=== PATIENT | female | born 1980 | race Caucasian/White ===

== ENCOUNTER 2018-09-17 15:00 | Inpatient (IN) | payer OTHER ==
[~2018-09-17] VITALS: Ht 167.6 cm; Wt 160.7 kg
[2018-09-17] VITALS (7 sets, daily range): BP systolic 140–162; BP diastolic 81–116
[~2018-09-17 15:00] MED LIST: ALBUTEROL S2.5 MG/.5 IN; FLEXERIL PO; HEMOCYTE325 MG OR; HYDROCHLOROT12.5 M1 PO; JOLESSA PO; KLOR-CON 1010 ME1 PO; NAPROSYN500 MG PO; PROVENTIL HFA IN
[2018-09-17 16:43] LABS: HEMOGLOBIN 12.4 g/dl (12.0-16.0); IMMATURE GRANULOCYTES 0.4 % (0.0-5.0); MEAN CELL VOLUME 87.4 fL CALC (80.0-100.0); MEAN CORPUSCULAR HGB 26.6 pG CALC (26.0-32.0); MEAN CORPUSCULAR HGB CONC 30.4 g/L CALC (32.0-36.0); NEUT# 11.51 thou/uL (2.00-7.15); RED BLOOD COUNT 4.67 mill/uL (4.20-5.60); RED CELL DISTRI WIDTH 14.8 % (11.5-15.5)
[2018-09-17 16:58] LABS: ANION GAP 12 (6-22 (CALC)); BUN 16 mg/dL (7-17); BUN/CREATININE RATIO 17 (12-20 (CALC)); CARBON DIOXIDE 27 mmol/l (22-30); CHLORIDE 101 mmol/l (95-108); GFR > 60 ML/MIN (>=60 (CALC)); GFR FOR AFR.AMER. > 60 ML/MIN (>=60 (CALC)); POTASSIUM 4.3 mmol/l (3.5-5.1); SODIUM 136 mmol/l (137-146)
[2018-09-17 17:04] LABS: HEMATOCRIT 40.8 % (37.0-47.0)
[2018-09-17] MEDS ORDERED: LEVOTHYROXIN125 MCG PO (17:07)
[2018-09-17 19:50] LABS: TSH, 3RD GENERATION 18.8 uIU/mL (0.47 - 4.68)
[2018-09-18] VITALS (21 sets, daily range): BP systolic 113–173; BP diastolic 66–95
[2018-09-18 05:36] LABS: HEMATOCRIT 40.3 % (37.0-47.0); HEMOGLOBIN 12.2 g/dl (12.0-16.0); IMMATURE GRANULOCYTES 1.4 % (0.0-5.0); MEAN CELL VOLUME 87.2 fL CALC (80.0-100.0); MEAN CORPUSCULAR HGB 26.4 pG CALC (26.0-32.0); MEAN CORPUSCULAR HGB CONC 30.3 g/L CALC (32.0-36.0); NEUT# 9.33 thou/uL (2.00-7.15); RED BLOOD COUNT 4.62 mill/uL (4.20-5.60); RED CELL DISTRI WIDTH 14.8 % (11.5-15.5)
[2018-09-18 05:58] LABS: ANION GAP 14 (6-22 (CALC)); BUN 15 mg/dL (7-17); BUN/CREATININE RATIO 15 (12-20 (CALC)); CARBON DIOXIDE 26 mmol/l (22-30); CHLORIDE 100 mmol/l (95-108); GFR > 60 ML/MIN (>=60 (CALC)); GFR FOR AFR.AMER. > 60 ML/MIN (>=60 (CALC)); POTASSIUM 3.9 mmol/l (3.5-5.1); SODIUM 135 mmol/l (137-146)
[2018-09-18 11:16] LABS: URINE BILIRUBIN - DIPSTICK NEGATIVE (NEGATIVE); URINE BLOOD DIPSTICK NEGATIVE (NEGATIVE); URINE CLARITY CLEAR; URINE COLOR YELLOW; URINE GLUCOSE - DIPSTICK NEGATIVE (NEGATIVE); URINE KETONE NEGATIVE (NEGATIVE); URINE LEUK ESTERASE NEGATIVE (Negative); URINE NITRITE - DIPSTICK NEGATIVE (Negative); URINE PH 5.5 (4.5-8.0); URINE PROTEIN - DIPSTICK TRACE mg/dL (NEG-TRACE)
[2018-09-19] VITALS (16 sets, daily range): BP systolic 100–131; BP diastolic 53–79
[2018-09-19 05:06] LABS: HEMATOCRIT 41.2 % (37.0-47.0); HEMOGLOBIN 12.4 g/dl (12.0-16.0); IMMATURE GRANULOCYTES 0.5 % (0.0-5.0); MEAN CORPUSCULAR HGB 26.5 pG CALC (26.0-32.0); MEAN CORPUSCULAR HGB CONC 30.1 g/L CALC (32.0-36.0); NEUT# 10.06 thou/uL (2.00-7.15); RED BLOOD COUNT 4.68 mill/uL (4.20-5.60); RED CELL DISTRI WIDTH 14.8 % (11.5-15.5)
[2018-09-19 05:25] LABS: ALBUMIN 3.2 g/dL (3.2-5.0); ALKALINE PHOSPHATASE 82 u/l (38-126); BILIRUBIN, TOTAL 0.7 mg/dL (0.0-1.4); BUN 14 mg/dL (7-17); BUN/CREATININE RATIO 14 (12-20 (CALC)); CHLORIDE 94 mmol/l (95-108); GFR > 60 ML/MIN (>=60 (CALC)); GFR FOR AFR.AMER. > 60 ML/MIN (>=60 (CALC)); LIPASE 102 u/l (23-300); MAGNESIUM 1.7 mg/dL (1.6-2.3); POTASSIUM 3.6 mmol/l (3.5-5.1); SGOT/AST 25 u/l (14-36); SODIUM 139 mmol/l (137-146); TOTAL PROTEIN 6.4 g/dL (6.3-8.2)
[2018-09-19 05:32] LABS: AMYLASE < 30 u/l (30-110); ANION GAP 13 (6-22 (CALC)); CARBON DIOXIDE 36 mmol/l (22-30)
[2018-09-20] VITALS (20 sets, daily range): BP systolic 92–132; BP diastolic 47–85
[2018-09-20 05:21] LABS: HEMATOCRIT 41.4 % (37.0-47.0); HEMOGLOBIN 12.5 g/dl (12.0-16.0); IMMATURE GRANULOCYTES 0.4 % (0.0-5.0); MEAN CELL VOLUME 88.1 fL CALC (80.0-100.0); MEAN CORPUSCULAR HGB 26.6 pG CALC (26.0-32.0); MEAN CORPUSCULAR HGB CONC 30.2 g/L CALC (32.0-36.0); NEUT# 9.52 thou/uL (2.00-7.15); RED BLOOD COUNT 4.7 mill/uL (4.20-5.60); RED CELL DISTRI WIDTH 14.6 % (11.5-15.5)
[2018-09-20 05:50] LABS: ALBUMIN 3.4 g/dL (3.2-5.0); ALKALINE PHOSPHATASE 85 u/l (38-126); ANION GAP 13 (6-22 (CALC)); BILIRUBIN, TOTAL 0.9 mg/dL (0.0-1.4); BUN 12 mg/dL (7-17); BUN/CREATININE RATIO 13 (12-20 (CALC)); CARBON DIOXIDE 33 mmol/l (22-30); CHLORIDE 94 mmol/l (95-108); GFR > 60 ML/MIN (>=60 (CALC)); GFR FOR AFR.AMER. > 60 ML/MIN (>=60 (CALC)); MAGNESIUM 1.8 mg/dL (1.6-2.3); POTASSIUM 4.2 mmol/l (3.5-5.1); SGOT/AST 29 u/l (14-36); SODIUM 136 mmol/l (137-146); TOTAL PROTEIN 6.8 g/dL (6.3-8.2)
[2018-09-21 01:00] VITALS: BP 107/71
[2018-09-21 04:55] LABS: HEMATOCRIT 41.7 % (37.0-47.0); HEMOGLOBIN 12.6 g/dl (12.0-16.0); IMMATURE GRANULOCYTES 0.3 % (0.0-5.0); MEAN CELL VOLUME 88.2 fL CALC (80.0-100.0); MEAN CORPUSCULAR HGB 26.6 pG CALC (26.0-32.0); MEAN CORPUSCULAR HGB CONC 30.2 g/L CALC (32.0-36.0); NEUT# 10.08 thou/uL (2.00-7.15); RED BLOOD COUNT 4.73 mill/uL (4.20-5.60); RED CELL DISTRI WIDTH 14.6 % (11.5-15.5)
[2018-09-21 05:34] LABS: ALBUMIN 3.5 g/dL (3.2-5.0); ALKALINE PHOSPHATASE 92 u/l (38-126); ANION GAP 14 (6-22 (CALC)); BILIRUBIN, TOTAL 0.7 mg/dL (0.0-1.4); BUN 13 mg/dL (7-17); BUN/CREATININE RATIO 12 (12-20 (CALC)); CARBON DIOXIDE 38 mmol/l (22-30); CHLORIDE 90 mmol/l (95-108); CREATININE 1.1 mg/dL (0.5-1.0); GFR 56 ML/MIN (>=60 (CALC)); GFR FOR AFR.AMER. > 60 ML/MIN (>=60 (CALC)); MAGNESIUM 1.9 mg/dL (1.6-2.3); POTASSIUM 3.7 mmol/l (3.5-5.1); SGOT/AST 25 u/l (14-36); SODIUM 138 mmol/l (137-146); TOTAL PROTEIN 7.1 g/dL (6.3-8.2)
[2018-09-21 08:00] VITALS: BP 117/78
[2018-09-21 10:00] VITALS: BP 114/77
[2018-09-21] MEDS ORDERED: CARVEDILOL6.25 MG PO (10:58)
[2018-09-21] MEDS ORDERED: KEFLEX500 MG PO (10:59)
[2018-09-21] MEDS ORDERED: BUMETANIDE1 MG PO (10:59)
[2018-09-21 12:00] VITALS: BP 91/74
[2018-09-21 13:05] VITALS: BP 107/73
== END 2018-09-21 13:25 | disposition home or self-care (01) | DRG 292 ==
LOC: ED 15:00 → ED-I 18:00 → ED 18:22 → ICU 18:23
PROVIDERS: Family Medicine; ADMIT Internal Medicine; ATTEND Internal Medicine Nephrology
PROC: 0T9B70Z Drainage of Bladder with Drainage Device, Via Natural or Artificial Opening (ICD-10-PCS; principal; 2018-09-18)
DX: I11.0 Hypertensive heart disease with heart failure (principal); L03.116 Cellulitis of left lower limb; L03.115 Cellulitis of right lower limb; I47.2 Ventricular tachycardia; E87.1 Hypo-osmolality and hyponatremia; E87.3 Alkalosis; Z68.43 Body mass index [BMI] 50.0-59.9, adult; I50.41 Acute combined systolic (congestive) and diastolic (congestive) heart failure; E66.01 Morbid (severe) obesity due to excess calories; E89.0 Postprocedural hypothyroidism; I42.0 Dilated cardiomyopathy; I08.3 Combined rheumatic disorders of mitral, aortic and tricuspid valves; C73 Malignant neoplasm of thyroid gland; J45.909 Unspecified asthma, uncomplicated; Z82.49 Family history of ischemic heart disease and other diseases of the circulatory system; Z92.21 Personal history of antineoplastic chemotherapy; Z92.3 Personal history of irradiation
CPT/HCPCS: J1644; J3370